=== PATIENT | male | born 1985 | race American Indian/Alaskan Native ===

== ENCOUNTER 2017-10-21 13:36 | Emergency (ER) | payer OTHER, MEDICAID ==
--- NOTE | 2017-10-21 14:12 | ED PDOC ---
Arrival/HPI - General Chief Complaint: Trauma Time Seen by Provider: 10/21/17 13:40 - History of Present Illness Narrative History of Present Illness (Text): 32 y/o M c PMHx asthma p/w headstrike approximately 1 hour ago. Patient states a metal pole fell over and struck him on L side of head. He denies headache, LOC , nausea, vomiting, confusion, numbness, weakness, blurry vision. Patient states he did not want to come to ED but workplace told him to. Past Medical History - Psychiatric Hx Substance Use: No Family/Social History Family/Social History: No Known Family HX Smoking Status: Never Smoked Hx Alcohol Use: No Hx Substance Use: No Allergies/Home Meds Home Medications: Home Meds Medication Instructions Recorded Confirmed No Known Home Med 10/21/17 10/21/17 Review of Systems - Physician Review All systems were reviewed & negative as marked: Yes - Review of Systems Eyes: absent: Vision Changes Respiratory: absent: SOB Physical Exam - Physical Exam Narrative Physical Exam (Text): Gen: NAD Head: NC/AT. No hematoma, no tenderness. No pena sign. No raccoon eyes. Eyes: PERRL. EOMI ENT: MMM Neck: No midline tenderness CV: Regular rate Lungs: CTA b/l Abd: Soft Skin: No ecchymosis Extremities: No swelling or tenderness Neuro: Alert. Oriented x 3. CN II to XII intact. Motor 5/5 x 4. Sensation to light touch intact bilaterally. FTN normal. Gait normal. Vital Signs Temp Pulse Resp BP Pulse Ox 10/21/17 13:36 98.5 F 90 18 141/100 H 98 Medical Decision Making ED Course and Treatment: Will discharge, no indication for CT Head at this time. Patient states he will return for any developing symptoms. Disposition/Present on Arrival - Present on Arrival Any Indicators Present on Arrival: No History of DVT/PE: No History of Uncontrolled Diabetes: No Urinary Catheter: No History of Decub. Ulcer: No History Surgical Site Infection Following: None - Disposition Have Diagnosis and Disposition been Completed?: Yes Diagnosis: Head injury Disposition: HOME/ ROUTINE Disposition Time: 14:12 Patient Plan: Discharge Condition: STABLE Discharge Instructions (ExitCare): Closed Head Injury (DC) Forms: [facility] [employer] [facility] (Urdu), WORK NOTE
[2017-10-21 14:14] VITALS: BP 141/100; PULSE 90; TEMP 98.5; O2SAT 98; BMI 35.9
[2017-10-21 14:19] VITALS: RESP 19
== END 2017-10-21 14:19 | disposition home or self-care (01) ==
LOC: ED 13:36
DX: S09.90XA Unspecified injury of head, initial encounter (principal); W20.8XXA Other cause of strike by thrown, projected or falling object, initial encounter; Y99.0 Civilian activity done for income or pay